=== PATIENT | female | born 1995 | race Caucasian/White ===

== ENCOUNTER → 2016-11-20 | Outpatient (CLI) | payer BC, OTHER ==
[2016-11-20 19:10] LABS: LYME DISEASE AB IGM NEG (NEG)
[2016-11-20 19:13] LABS: LYME DISEASE AB IGG NEG (NEG)
== END | disposition home or self-care (01) ==
LOC: C.LABMFLN 15:02
PROVIDERS: ATTEND Family Medicine
DX: M25.50 Pain in unspecified joint (principal)